=== PATIENT | male | born 1985 | race Caucasian/White ===

== ENCOUNTER 2022-05-25 14:58 | Inpatient (IN) | payer OTHER ==
[2022-05-25 17:27] VITALS: BMI 21.4
[2022-05-25] MEDS ORDERED: MAG HYDROX/AL HYDROX/SIMETH 30 ML UNIT-DOSE CUP PO PRN (20:12)
[2022-05-25] MEDS ORDERED: NICOTINE 10 MG CARTRIDGE (INHALER) IH PRN (20:12)
[2022-05-25] MEDS ORDERED: BENZONATATE 200 MG CAPSULE PO PRN (20:12)
[2022-05-25] MEDS ORDERED: IBUPROFEN 400 MG TABLET (FP) PO PRN (20:12)
[2022-05-25] MEDS ORDERED: ONDANSETRON *ODT* 4 MG TABLET SL PRN (20:12)
[2022-05-25] MEDS ORDERED: BISMUTH SUBSALICYLATE 524 MG/30 ML PO PRN (20:12)
[2022-05-25] MEDS ORDERED: NALOXONE HCL 0.4 MG/ML VIAL IM PRN (20:12)
[2022-05-25] MEDS ORDERED: DICYCLOMINE HCL 10 MG CAPSULE PO PRN (20:12)
[2022-05-25] MEDS ORDERED: hydrOXYzine PAMOATE 25 MG CAPSULE (FP) PO PRN (20:12)
[2022-05-25] MEDS ORDERED: IBUPROFEN 600 MG TABLET (FP) PO PRN (20:12)
[2022-05-25] MEDS ORDERED: BENZOCAINE/MENTHOL (CHLORASEPTIC ) LOZENGE MM PRN (20:12)
[2022-05-25] MEDS ORDERED: METHOCARBAMOL 500 MG TABLET PO PRN (20:12)
[2022-05-25] MEDS ORDERED: MAGNESIUM HYDROX 2400MG/30ML ORAL SUSPENSION 30 ML CUP PO PRN (20:12)
[2022-05-25] MEDS ORDERED: LOPERAMIDE HCL 2 MG CAPSULE PO PRN (20:12)
[2022-05-25] MEDS ORDERED: NALOXONE HCL (KLOXXADO) 8 MG SPRAY NS PRN (20:12)
[2022-05-25] MEDS ORDERED: ACETAMINOPHEN 325 MG TABLET (FP) PO PRN (20:12)
[2022-05-25] MEDS ORDERED: POLYETHYLENE GLYCOL (HEALTHYLAX) 3350 17 GM PACKET PO PRN (20:12)
[2022-05-25] MEDS ORDERED: guaiFENesin 600 MG TABLET.ER (FP) PO PRN (20:12)
[2022-05-25] MEDS ORDERED: diazePAM 5 MG TABLET PO PRN (20:27)
[2022-05-25] MEDS ORDERED: MELATONIN 5 MG TABLETS PO SCH (22:00)
[2022-05-25] MEDS ORDERED: THIAMINE HCL 100 MG TABLET (FP) PO SCH (22:00)
[2022-05-25] MEDS: diazePAM 5 MG TABLET PO SCH (22:51)
[2022-05-26] MEDS: diazePAM 5 MG TABLET PO SCH ×2 (05:56→10:10)
[2022-05-26] MEDS ORDERED: PRENATAL VITAMINS W/ FOLIC ACID TABLET (FP) PO SCH (10:00)
[2022-05-26 11:14] LABS: HEMATOCRIT 41.3 % (35.4-49); HEMOGLOBIN 14.1 GM/dL (11.7-16.9); MCH 30.5 pg (25.7-33.7); MCHC 34.2 g/dl (32.0-35.9); MEAN PLT VOLUME 9.3 fl (7.5-11.1); PLATELET COUNT 169 10^3/uL (134-434); RBC 4.63 M/mm3 (4.00-5.60); RDW 13.8 % (11.9-15.9); WHITE BLOOD COUNT 5.8 K/mm3 (4.0-10.0)
[2022-05-26 11:18] LABS: CALCIUM 8.9 mg/dL (8.5-10.1)
[2022-05-26 11:19] LABS: ALBUMIN 3.2 g/dl (3.4-5.0); BLOOD UREA NITROGEN 9.6 mg/dL (7-18)
[2022-05-26 11:22] LABS: CREATININE 0.7 mg/dL (0.55-1.3)
[2022-05-26 11:24] LABS: BILIRUBIN,TOTAL 1.4 mg/dL (0.2-1); TOT PROT 6.2 g/dl (6.4-8.2)
[2022-05-26 17:45] VITALS: BP 122/65; PULSE 85; RESP 18; TEMP 97.8
[2022-05-27] MEDS ORDERED: diazePAM 5 MG TABLET PO SCH (06:00)
[2022-05-28] MEDS ORDERED: diazePAM 5 MG TABLET PO SCH (06:00)
[2022-05-29] MEDS ORDERED: diazePAM 5 MG TABLET PO ONE (06:00)
== END 2022-05-26 16:58 | disposition left against medical advice (07) | DRG 894 ==
LOC: YASAS 14:58 → Y3N 20:55
PROVIDERS: ADMIT Allergy & Immunology; ATTEND Surgery
PROC: HZ2ZZZZ Detoxification Services for Substance Abuse Treatment (ICD-10-PCS; principal; 2022-05-26)
DX: F10.230 Alcohol dependence with withdrawal, uncomplicated (principal); F17.210 Nicotine dependence, cigarettes, uncomplicated
CPT/HCPCS: 36415; 80053; 85027; 86780; C9803-CS; U0003; U0005